=== PATIENT | female | born 1995 | race Caucasian/White ===

== ENCOUNTER → 2020-01-23 | Outpatient (CLI) | payer MEDICAID | LOC: LAB 09:41 | DX: N30.01 Acute cystitis with hematuria (principal) ==

== ENCOUNTER → 2020-05-21 | Outpatient (CLI) | payer BC, MEDICAID ==
[2020-05-21 09:46] LABS: EOS # 0.2 (0.04-0.40); EOS % 4.7 % (1.0-5.0); HEMATOCRIT 40.2 % (37.0-47.0); HEMOGLOBIN 13.1 g/dL (12.5-16.0); LYMPH# 1.1 (1.50-4.00); MEAN CELL VOLUME 92 fl (78-100); MEAN CORPUSCULAR HEMOGLOBIN 30 pg (27-31); MEAN CORPUSCULAR HGB CONC 33 g/dL (33-37); MEAN PLATELET VOLUME 8.6 fl (7.4-10.4); MONO # 0.4 (0.20-0.80); NEU # 2.9 (1.40-6.50); PLATELET COUNT 221 K/mm3 (130-400); RED BLOOD COUNT 4.37 M/mm3 (4.10-5.30); RED CELL DISTRIBUTION WIDTH 13.4 % (11.5-14.5); WHITE BLOOD COUNT 4.6 K/mm3 (4.8-10.8)
== END ==
LOC: LAB 09:23
PROVIDERS: Family Medicine
DX: R04.0 Epistaxis (principal); D64.9 Anemia, unspecified; Z98.890 Other specified postprocedural states